=== PATIENT | female | born 2000 | race African-American/Black ===

== ENCOUNTER 2024-01-06 13:23 | Observation (INO) | payer MEDICAID ==
[~2024-01-06] VITALS: Ht 167.6 cm; Wt 84.4 kg
[2024-01-06 13:43] VITALS: BP 131/80; PULSE 96; RESP 20; O2SAT 100
== END 2024-01-06 15:24 | disposition home or self-care (01) ==
LOC: ER 13:23 → LDRP 13:47 → UNDOADMOB 13:47 → LDRP 13:53 → UNDODISOB 15:24
PROVIDERS: ADMIT Obstetrics & Gynecology; ATTEND Obstetrics & Gynecology
DX: O21.2 Late vomiting of pregnancy (principal); O26.892 Other specified pregnancy related conditions, second trimester; R10.30 Lower abdominal pain, unspecified; Z3A.18 18 weeks gestation of pregnancy
CPT/HCPCS: 76805; 81002; 99284; G0378

== ENCOUNTER 2024-03-26 13:37 | Observation (INO) | payer MEDICAID ==
[~2024-03-26] VITALS: Ht 167.6 cm; Wt 97.5 kg
[2024-03-26] MEDS: TERBUTALINE SULFATE 1 MG/ML 1ML VIAL SC SCH (15:12)
[2024-03-26] MEDS: TERBUTALINE SULFATE 1 MG/ML 1ML VIAL SC ONE (15:13)
[2024-03-26] MEDS: LACTATED RINGER'S 1,000 ML IV SCH (15:14)
[2024-03-26] MEDS: LACTATED RINGER'S 1,000 ML IV ONE (15:15)
[2024-03-26] MEDS: ONDANSETRON HCL 4 MG/2 ML VIAL IV ONE (15:28)
== END 2024-03-26 17:03 | disposition home or self-care (01) ==
LOC: LDRP 13:37 → UNDOADMOB 13:37 → LDRP 14:40
PROVIDERS: ADMIT Obstetrics & Gynecology; ATTEND Obstetrics & Gynecology
DX: O99.283 Endocrine, nutritional and metabolic diseases complicating pregnancy, third trimester (principal); E86.0 Dehydration; O21.2 Late vomiting of pregnancy; Z3A.30 30 weeks gestation of pregnancy
CPT/HCPCS: 59025; 76805; 81002; 94760; 96361; 96372; 96374; G0378; J2405; J3105; 96365; 96366

== ENCOUNTER 2024-04-14 23:19 | Observation (INO) | payer MEDICAID ==
[~2024-04-14] VITALS: Ht 167.6 cm; Wt 99.8 kg
[2024-04-14] MEDS ORDERED: ONDANSETRON HCL 4 MG/2 ML VIAL IM ONE (23:30)
[2024-04-14] MEDS: TERBUTALINE SULFATE 1 MG/ML 1ML VIAL SC SCH (23:50)
[2024-04-14] MEDS: FAMOTIDINE (10MG/ML) 2ML VL IV ONE (23:52)
[2024-04-15] MEDS: LACTATED RINGER'S 1,000 ML IV ONE (00:53)
[2024-04-15] MEDS: BETAMETHASONE ACET (30mg/5ml) 5ml Vial 6mg/ml IM ONE (01:12)
[2024-04-15 02:22] LABS: COVID19 ANTIGEN SOFIA FIA NEGATIVE (NEGATIVE); Rapid Influenza A Negative (Negative); Rapid Influenza B Negative (Negative)
[2024-04-15] MEDS: NIFEdipine 10 MG CAP PO ONE (02:40)
== END 2024-04-15 04:13 | disposition home or self-care (01) ==
LOC: LDRP 23:19
PROVIDERS: ADMIT Obstetrics & Gynecology; ATTEND Obstetrics & Gynecology
DX: O62.9 Abnormality of forces of labor, unspecified (principal); Z20.822 Contact with and (suspected) exposure to COVID-19; O21.2 Late vomiting of pregnancy; O99.513 Diseases of the respiratory system complicating pregnancy, third trimester; J06.9 Acute upper respiratory infection, unspecified; R05.9 Cough, unspecified; R06.02 Shortness of breath; Z3A.31 31 weeks gestation of pregnancy
CPT/HCPCS: 36415; 59025; 76818; 81002; 87426; 87804; 94760; 96361; 96372; 96374; G0378; J0702; J3105; J3490; 96360; J2405

== ENCOUNTER 2024-06-18 09:05 | Emergency (ER) | payer MEDICAID ==
[~2024-06-18] VITALS: Ht 167.6 cm; Wt 82.0 kg
[2024-06-18 09:20] VITALS: PULSE 53; RESP 16; TEMP 98; O2SAT 100
[2024-06-18] MEDS: ONDANSETRON HCL 4 MG/2 ML VIAL IV ONE ×2 (10:16→12:54)
[2024-06-18 10:17] VITALS: BP 129/76; PULSE 55; RESP 18
[2024-06-18] MEDS: MORPHINE SULFATE 4 MG/ML SYR/VIAL IV ONE (10:17)
[2024-06-18] MEDS: SODIUM CHLORIDE 0.9% 1,000 ML IV ONE (10:17)
[2024-06-18 10:18] LABS: Basophils # (auto) 0.1 10 ^3/uL (0-0.2); Basophils % (auto) 0.8 % (0.0-2.0); Eosinophils # (auto) 0.2 10 ^3/uL (0-0.8); Eosinophils % (auto) 2.2 % (0.0-7.0); Hematocrit 35.2 % (36.0-46.0); Hemoglobin 11.5 g/dL (12.2-16.2); Lymphocytes # (auto) 1.9 10 ^3/uL (0.4-5.4); Lymphocytes % (auto) 25.1 % (10.0-50.0); Mean Corpuscular Hemoglobin 27.9 pg (28.0-32.0); Mean Corpuscular Hgb Conc. 32.6 g/dL (32.0-36.0); Mean Corpuscular Volume 85.6 fL (80.0-100.0); Monocytes # (auto) 0.7 10 ^3/uL (0-1.3); Monocytes % (auto) 9.9 % (0.0-12.0); Neutrophils # (auto) 4.7 10 ^3/uL (1.6-8.6); Platelet Count (auto) 314 10^3/uL (140-450); Red Blood Cells 4.11 10^6/uL (4.0-5.20); Red Cell Distribution Width 14.7 % (11.8-14.3); White Blood Cell 7.5 10^3/uL (4.4-10.8)
[2024-06-18 10:38] LABS: Carbon Dioxide 23 mmol/L (20-31)
[2024-06-18 10:39] LABS: Calcium 9.3 mg/dL (8.7-10.4)
[2024-06-18 10:44] LABS: BUN/Creatinine Ratio 11.8 (10.0-20.0); Blood Urea Nitrogen 6 mg/dL (9-23); Glucose 78 mg/dL (74-106)
[2024-06-18 11:21] LABS: Anion Gap 8 (5-15); Chloride 111 mmol/L (98-107); Potassium 3.8 mmol/L (3.5-5.1); Sodium 142 mmol/L (136-145)
[2024-06-18] MEDS: MORPHINE SULFATE INJ 2 MG/ml SYRG IV ONE (12:54)
== END 2024-06-18 12:55 | disposition left against medical advice (07) ==
LOC: EDUNIT# 09:05 → ER 09:05 → EDBD 09:05 → ER 12:55
DX: K52.9 Noninfective gastroenteritis and colitis, unspecified (principal)
CPT/HCPCS: 36415; 80048; 85025; 96361; 96374; 96375; 99284; J2270; J2405; J7030